=== PATIENT | male | born 2000 | race African-American/Black ===

== ENCOUNTER 2020-03-25 09:58 | Emergency (ER) | payer OTHER, SELFPAY ==
--- NOTE | ~2020-03-25 | CT_ITS ---
EXAMINATION: CT abdomen pelvis w con EXAM DATE: 03/25/2020 11:35 INDICATION: Left testicular pain 5 days. TECHNIQUE: Spiral CT of the abdomen and pelvis was performed following intravenous injection of 100 m L Omnipaque 350. Axial, coronal and sagittal images were reviewed. The dose-length product (DLP) fo r this examination was 898.72 mGy-cm. The exposure was tailored according to patient size (auto mA e xposure control), and iterative reconstruction (ASIR) was used as additional dose reduction technique . There is no prior study for comparison. FINDINGS: The liver, spleen, adrenal glands and pancreas are unremarkable. Gallbladder is unremarkab le. No biliary obstruction. Portal and splenic veins are patent. Kidneys enhance symmetrically. T here is no hydronephrosis. The prostate is unremarkable. The bladder is unremarkable. There is no retroperitoneal or pelvic lymphadenopathy. No inguinal hernias. The appendix is normal. The stomach and small bowel are unremarkable. There is expected amount of c olonic stool. No free intraperitoneal gas. The heart is normal in size. There are no pericardial or pleural effusions. The lung bases are unremarkable. The bones are unremarkable. IMPRESSION: 1. No acute intra-abdominal findings. Reviewed, dictated and finalized at location B. EL TECHNICIAN
--- NOTE | ~2020-03-25 | US_ITS ---
EXAMINATION: US scrotum doppler EXAM DATE: 03/25/2020 10:59 INDICATION: Left testicular pain. TECHNIQUE: Multiple grayscale and Doppler images of the testicles and scrotum were obtained bilateral ly. There is no prior study for comparison. FINDINGS: Right testicle measures 4.2 x 1.8 x 3.5 cm and is morphologically normal. Low resistance Doppler saurabh w confirmed. The epididymis is unremarkable. There is no hydrocele or varicocele. Left testicle measures 4.1 x 1.9 x 2.8 cm and is morphologically normal. Low resistance Doppler flow confirmed. The epididymis is unremarkable. There is no hydrocele or varicocele. IMPRESSION: 1. Unremarkable testicular/scrotal ultrasound exam. Reviewed, dictated and finalized at location B. LIANCE PARALEGAL
--- NOTE | 2020-03-25 10:09 | ED.ABDPAIN ---
HPI - Abdominal Pain General Chief Complaint: Urogenital-Male Stated Complaint: lt groin pain Time Seen by Provider: 03/25/20 10:07 Source: patient Mode of arrival: ambulatory Limitations: no limitations History of Present Illness HPI narrative: Patient is 19 years old -[place] male referred to our emergency room from urgent care because of left testicular pain for the last 4 days., Last sexual intercourse was 6 days ago without anything unusual. Currently patient is pain-free, denying any fever, chills, nausea, vomiting, urinary symptoms, penile discharge, abdominal pain or trauma. Related Data Home Medications Medication Instructions Recorded Confirmed No Home Medications 03/25/20 03/25/20 Allergies Allergy/AdvReac Type Severity Reaction Status Date / Time No Known Allergies Allergy Verified 03/25/20 10:20 Review of Systems Review of Systems: Narrative: CONSTITUTIONAL: Denies fever, chills, or sweats. EYES: Denies visual changes, redness, or discharge. ENT: Denies rhinorrhea, congestion, sore throat, or otalgia. CARDIOVASCULAR: Denies chest pain, palpitations, or edema. RESPIRATORY: Denies cough or dyspnea. GASTROINTESTINAL: Denies abdominal pain, nausea, vomiting, or diarrhea. GENITOURINARY: Denies dysuria or hematuria. SKIN: Denies rash or itching. MUSCULOSKELETAL: Denies back pain, joint pain, or myalgia. NEUROLOGIC: Denies headache, numbness, or weakness. PSYCHIATRIC: Denies anxiety or depression. PMFSH Social History Social History Gender identity (if verbalized by the patient): Male Exam Narrative: Exam Narrative: General appearance: Well-developed, well-nourished Skin: Normal color Head: Normocephalic, nontraumatic Eyes: Clear conjunctiva ENT: Oropharynx normal, ears normal, nose normal Neck: Supple, nontender Chest and respiratory: Airway patent, no respiratory distress, no accessory muscle use Heart: Regular rate/rhythm Abdomen: Soft, nontender, no organomegaly, quiet bowel sounds, genital exam showed no swelling, no bruises, no mass, no tenderness including penis and testicles. Vascular: Normal peripheral pulses, normal capillary refill. Musculoskeletal: Normal range of motion, nontender back Neurologic: Alert and oriented ?3, [employer] is normal as tested, no gross motor deficit Course Course Emergency Course: Stable Vital Signs Vital signs: Vital Signs Temperature 36.2 C L 03/25/20 10:14 Pulse Rate 78 03/25/20 10:14 Respiratory Rate 18 03/25/20 10:14 Blood Pressure 143/85 H 03/25/20 10:14 Pulse Oximetry 98 03/25/20 10:14 Temperature 36.2 C L 03/25/20 10:14 Pulse Rate 78 03/25/20 10:14 Respiratory Rate 18 03/25/20 10:14 Blood Pressure 143/85 H 03/25/20 10:14 Pulse Oximetry 98 03/25/20 10:14 MDM - Abdominal Pain MDM Narrative Medical decision making narrative: Patient presents with left testicular pain, currently asymptomatic. Testicular ultrasound ordered. Further plan to follow Differential Diagnosis Differential diagnosis: Likely other (Epididymitis, orchitis) Lab Data Result diagrams: 03/25/20 10:24 03/25/20 10:24 Labs: Lab Results 03/25/20 03/25/20 Range/Units 10:24 10:24 WBC 7.8 (4.5-10.0) K/mm3 RBC 5.16 (4.6-6.20) M/mm3 Hgb 15.8 (14.0-18.0) g/dL Hct 46.2 (42.0-52.0) % MCV 89.5 (80-100) fl MCH 30.6 (26-34) pg MCHC 34.2 (32-36) g/dl RDW 12.4 (11.5-14.5) % Plt Count 341 (150-375) k/mm3 MPV 8.8 (7.4-10.4) fl Immature Gran % (Auto) 0.3 (0-0.5) % Neut % (Auto) 48.9 (45.5-73.1) % Lymph % (Auto) 39.9 (18.3-44.2) % [place] % (Auto) 7.2 (2.6-8.5) % Eos % (Auto) 3.1 (0-4
[2020-03-25 10:14] VITALS: BP 143/85; PULSE 78; RESP 18; TEMP 36.2; O2SAT 98
[2020-03-25 10:29] LABS: Basophils Absolute Auto 0.1 K/mm3 (0.0-0.1); Basophils Percent Auto 0.6 % (0.2-1.2); Eosinophils Absolute Auto 0.2 K/mm3 (0-0.3); Eosinophils Percent Auto 3.1 % (0-4.4); Hematocrit 46.2 % (42.0-52.0); Hemoglobin 15.8 g/dL (14.0-18.0); Immature Granulocyte Absolute 0.02 K/mm3 (0.00-0.031); Immature Granulocyte Percent A 0.3 % (0-0.5); Lymphocytes Percent Auto 39.9 % (18.3-44.2); Mean Corpuscular HGB Conc 34.2 g/dl (32-36); Mean Corpuscular Hemoglobin 30.6 pg (26-34); Mean Corpuscular Volume 89.5 fl (80-100); Mean Platelet Volume 8.8 fl (7.4-10.4); Monocytes Absolute Auto 0.6 K/mm3 (0.1-0.6); Monocytes Percent Auto 7.2 % (2.6-8.5); Neutrophils Absolute Auto 3.8 K/mm3 (1.3-6.7); Neutrophils Percent Auto 48.9 % (45.5-73.1); Platelet Count Result 341 k/mm3 (150-375); Red Blood Count 5.16 M/mm3 (4.6-6.20); Red Cell Distribution Width 12.4 % (11.5-14.5); White Blood Count 7.8 K/mm3 (4.5-10.0)
[2020-03-25 10:45] LABS: Alanine Aminotransferase 28 U/L (4-50); Albumin Level 4.7 g/dL (3.5-5.1); Alkaline Phosphatase 74 U/L (38-126); Anion Gap 5 mmol/L (8-16); Aspartate Amino Transferase 27 U/L (17-59); Bilirubin,Total 0.4 mg/dL (0.2-1.3); Blood Urea Nitrogen 16 mg/dL (9-20); Calcium 9.7 mg/dL (8.4-10.2); Carbon Dioxide 32 mmol/L (22-30); Chloride 103 mmol/L (98-107); Estimated CRCL calculation 126 ml/min; Estimated Glomerular Filt Rate > 60; Glucose 93 mg/dL (75-110); Lipase 90 U/L (23-300); Potassium 4.1 mmol/L (3.4-5.0); Sodium 140 mmol/L (137-145)
--- NOTE | 2020-03-25 11:13 | PC.NURSE ---
After exam per Dr. Zhong, orders for pain medications and IVF discontinued.
--- NOTE | 2020-03-25 11:27 | PC.NURSE ---
Report to KAT Paez, to continue care.
--- NOTE | 2020-03-25 11:38 | PC.NURSE ---
received report from Dante STEPHENS. alert. resting on stretcher. Rosi STEPHENS at bedside to start IV.
[2020-03-25 11:53] VITALS: BP 112/60; PULSE 70; RESP 16; O2SAT 100
== END 2020-03-25 11:54 | disposition home or self-care (01) ==
PROVIDERS: Emergency Provider Emergency Medicine; PCP Internal Medicine
DX: N50.812 Left testicular pain (principal)
CPT/HCPCS: 36415; 74177; 76870; 80053; 83690; 85025; 93976; 99284; Q9967